=== PATIENT | male | born 1960 | race Caucasian/White ===

== ENCOUNTER 2020-06-27 14:22 | Outpatient (CLI) | payer OTHER, SELFPAY ==
--- NOTE | ~2020-06-27 | US_ITS ---
EXAMINATION: US scrotum doppler EXAM DATE: 06/27/2020 15:42 INDICATION: Left groin pain. TECHNIQUE: Multiple grayscale and Doppler images of the testicles and scrotum were obtained bilateral ly. There is no prior study for comparison. FINDINGS: Right testicle measures 4.4 x 3.1 x 2.0 cm and is morphologically normal. Low resistance Doppler suzanne w confirmed. The epididymis is unremarkable. Varicocele, vessels up to 4 mm in diameter. Left testicle measures 4.4 x 3.4 x 2.0 cm and is morphologically normal. Low resistance Doppler flow confirmed. The epididymis is unremarkable. Varicocele, vessels up to 4 mm in diameter. IMPRESSION: 1. Moderate-sized bilateral varicoceles. Reviewed, dictated and finalized at location A.
== END 2020-06-27 14:23 | disposition home or self-care (01) ==
PROVIDERS: PCP Family Medicine; Visit Provider Physician Assistant
DX: K40.90 Unilateral inguinal hernia, without obstruction or gangrene, not specified as recurrent (principal); I86.1 Scrotal varices
CPT/HCPCS: 76870; 93976

== ENCOUNTER 2020-10-26 08:46 | Outpatient (CLI) | payer OTHER, SELFPAY ==
--- NOTE | 2020-10-26 08:49 | ECG_ITS ---
Measurements Intervals [place] Rate: 70 P: 43 RI: 131 QRS: 25 QRSD: 94 T: 46 QT: 360 QTc: 389 Interpretive Statements SINUS RHYTHM DELAYED PRECORDIAL R/S TRANSITION BASELINE ARTIFACT- I, II, III, AVR, AVL, AVF BORDERLINE ECG Electronically Signed On 10-26-2020 9:10:48 MARINE ARCHITECT by Cecilio Qiu D.O.
== END 2020-10-26 08:47 | disposition home or self-care (01) ==
LOC: ANHSURGERY 08:49
PROVIDERS: PCP Physician Assistant; Visit Provider Surgery
DX: Z01.818 Encounter for other preprocedural examination (principal); E78.00 Pure hypercholesterolemia, unspecified; K40.90 Unilateral inguinal hernia, without obstruction or gangrene, not specified as recurrent
CPT/HCPCS: 36415; 86850; 86900; 86901; 93005

== ENCOUNTER 2020-10-28 00:43 | Outpatient (CLI) | payer OTHER, SELFPAY ==
[2020-10-28 20:15] LABS: SARS-CoV-2 RNA PCR Negative
== END 2020-10-28 00:44 | disposition home or self-care (01) ==
LOC: ANHCOVIDDT 00:44
PROVIDERS: PCP Physician Assistant; Visit Provider Surgery
DX: Z01.812 Encounter for preprocedural laboratory examination (principal); Z11.59 Encounter for screening for other viral diseases
CPT/HCPCS: 87635; C9803; U0003

== ENCOUNTER 2020-11-01 00:15 | Day surgery (SDC) | payer OTHER, SELFPAY ==
[2020-10-25 09:53] VITALS: BMI 27.6
--- NOTE | 2020-10-31 13:30 | P.PNAN_ITS ---
Anes - Initial Pre Proc Eval Procedure: Operation Date: 11/01/20 07:30 Proposed Procedures p Laparoscopic Left Inguinal Hernia Repair With Mesh, Davinci Assisted - Guicho Melara DO Date/Time: 10/31/20 13:30 Surgeon: Guicho Melara DO Pre Op Diagnosis: Left Inguinal Hernia Patient Data Age: 60 Gender: M Height: 1.88 m Weight: 97.59 kg Allergies Allergy/AdvReac Type Severity Reaction Status Date / Time No Known Allergies Allergy Verified 11/01/20 06:26 Home Medications Medication Instructions Recorded Confirmed Type glucosamine HCl 1,500 mg tablet 1,500 mg PO DAILY 09/29/20 11/01/20 History latanoprost 0.005 % eye drops 1 drp OPHTHALMIC (EYE) HS 09/29/20 11/01/20 History multivitamin,jk-[id number]-[id number] 1 tablet PO DAILY 09/29/20 11/01/20 History rosuvastatin 5 mg tablet 5 mg PO HS 09/29/20 11/01/20 History timolol 0.25 % eye drops 1 drp OPHTHALMIC (EYE) Q12H 09/29/20 11/01/20 History Patient hx anesthesia problems: none Family hx anesthesia problems: none PMFSH Past Medical History Medical History Glaucoma High cholesterol History of kidney stones Family History Family History Father COPD (chronic obstructive pulmonary disease) Mother Hypertension Cerebrovascular accident Diabetes mellitus Pulmonary embolism Sibling Parkinsons disease Sibling Diabetes mellitus Hypertension Pulmonary embolism High cholesterol Social History Social History Smoking status: Never smoker Alcohol intake: never Living arrangements: alone 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 Questions were solicited and answers provided to the satisfaction of the patient/family/POA.
[2020-11-01] VITALS (10 sets, daily range): BP systolic 112–138; BP diastolic 69–92; PULSE 66–79; RESP 14–21; TEMP 36.3–36.6; O2SAT 98–100
[2020-11-01] MEDS: ACETAMINOPHEN 500 MG TABLET 1000 MG PO (06:40)
[2020-11-01] MEDS: LACTATED RINGERS 1,000 ML 30 ML IV CONT ×2 (06:53→09:13)
[2020-11-01] MEDS: KETOROLAC 15 MG/ML VIAL (*BKC) IV PUSH (06:55)
--- NOTE | 2020-11-01 07:00 | PM.IMHP ---
H&P: HPI History of Present Illness Date/Time: 11/01/20 07:00 Cheif Complaint: LIH Narrative: Magno Davidson is a 60 year old male who presents for left inguinal hernia repair. He reports no changes since last seen in office. Review of Systems Review of Systems: All systems reviewed & are unremarkable except as noted in HPI and below Constitutional: Constitutional: Denies chills, Denies fever(s), Denies headache(s) and Denies weight loss Eyes: Eyes: Denies change in vision ENT: Denies dizziness, Denies headache(s), Denies neck mass and Denies throat swelling Cardiovascular: Cardiovascular: Denies chest pain, Denies lightheadedness and Denies dyspnea Respiratory: Respiratory: Denies cough, Denies dyspnea and Denies wheezing Gastrointestinal: Gastrointestinal: Denies abdominal pain, Denies change in bowel habits, Denies nausea and Denies vomiting Genitourinary: Genitourinary: Denies hematuria and Denies dysuria Musculoskeletal: Musculoskeletal: Reports as per HPI Integumentary/Breasts: Skin/Breast: Reports as per HPI Neurologic: Denies dizziness and Denies headache(s) Allergic/Immunologic: Allergic/Immunologic: Denies throat swelling and Denies wheezing PMFSH Past Medical History Medical History Glaucoma High cholesterol History of kidney stones Family History Family History Father COPD (chronic obstructive pulmonary disease) Mother Hypertension Cerebrovascular accident Diabetes mellitus Pulmonary embolism Sibling Parkinsons disease Sibling Diabetes mellitus Hypertension Pulmonary embolism High cholesterol Social History Social History Smoking status: Never smoker Alcohol intake: never Living arrangements: alone 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 Spiritual care concerns: No Meds Home Medications and Allergies Home Medications Medication Instructions Recorded Confirmed Type glucosamine HCl 1,500 mg tablet 1,500 mg PO DAILY 09/29/20 11/01/20 History latanoprost 0.005 % eye drops 1 drp OPHTHALMIC (EYE) HS 09/29/20 11/01/20 History multivitamin,jf-hslt-[id number] 1 tablet PO DAILY 09/29/20 11/01/20 History rosuvastatin 5 mg tablet 5 mg PO HS 09/29/20 11/01/20 History timolol 0.25 % eye drops 1 drp OPHTHALMIC (EYE) Q12H 09/29/20 11/01/20 History Allergies Allergy/AdvReac Type Severity Reaction Status Date / Time No Known Allergies Allergy Verified 11/01/20 06:26 Vital Signs Vital Signs - 24 hr 11/01/20 06:04 Temperature 36.6 C Pulse Rate 71 Respiratory Rate 16 Blood Pressure 138/92 H Pulse Oximetry 100 Exam Const: General: no acute distress and alert Orientation/consciousness: patient oriented x3 HENMT: Head: normocephalic and atraumatic Ears: hearing grossly normal bilaterally General nose exam: Normal nares present Mouth: Yes Normal oral and palatal mucosa present Eyes: Periorbital: periorbital findings normal Sclera: sclerae normal EOM: EOMs intact bilaterally Neck: Neck: normal visual inspection, no lymphadenopathy and trachea midline Chest: Chest palpation & inspection: normal inspection of the chest Resp: Effort & Inspection: normal respiratory effort Auscultation: clear to auscultation bilaterally Cardio: Jugular venous distension: no JVD Rate: regular rate Rhythm: regular rhythm Heart sounds: S1 normal heart sound present and S2 normal heart sound present Peripheral pulses: Peripheral pulses 2+ throughout GI: Inspection: normal to inspection GI Palp: Yes Soft to palpation, No Tenderness to palpation present (GI), No Guarding due to palpation present (GI) and No Rebound tenderness present Percussion: Yes normal to percussion Auscultation: normal bowel sounds : General: Yes no CVA tenderness Scrotum: inguinal hernia on the left Back/Spine/P
[2020-11-01] MEDS: ceFAZolin 2 GM/D5W 50 ML 2 GM/50 ML BAG IVPB (07:30)
[2020-11-01] MEDS: BUPIVACAINE/EPINEPHRINE 0.25% 10 ML VIAL 30 ML INFILTRATE (08:09)
--- NOTE | 2020-11-01 08:58 | PM.PROC ---
Procedure Note - Detailed Date of procedure: 11/01/20 Pre-op diagnosis: Left Inguinal Hernia Post-op diagnosis: same (Indirect LIH) Procedure performed: Laparoscopic left inguinal hernia repair with Progrip mesh, da Garima assisted Description of procedure: Procedure as well as risks, benefits, and alternatives were discussed with the patient. Written consent was obtained and placed in chart prior to procedure. Patient was brought back to surgical suite. He was placed supine on operating table. Time-out was done to confirm patient and procedure. He was then intubated by Anesthesia Department. His abdomen was prepped and draped in sterile fashion using chlorhexidine prep. 0.5% bupivacaine with epinephrine was infiltrated at each location for incision. An 8 mm incision was made in the left lateral abdomen, and a 5 mm Optiview trocar was advanced through the abdominal layers under direct visualization. Once inside the abdominal cavity, carbon dioxide insufflation was used to create a pneumoperitoneum. A camera was inserted and the abdominal cavity was inspected. The patient was placed in slight Trendelenburg position. An 8 millimeter incision was made on the right lateral abdomen and an 8 millimeter trocar was inserted under direct visualization. Another 8 millimeter incision was made just superior to the umbilicus and an 8 millimeter trocar was inserted under direct visualization. The 5 mm port was then removed and this was replaced with another 8 mm robotic port. The robotic arms were brought up to the patient's bedside and secured to the ports. The camera and instruments were inserted. I then moved over to the robotic console and took control of the camera and instruments. After careful inspection of the abdominal cavity, I began scoring the peritoneum along the left lower quadrant using scissors with electrocautery. The preperitoneal plane was entered and this was carefully dissected caudally along the inferior epigastric vessels. Careful dissection with scissors with electrocautery and blunt dissection was used to continue this dissection. I dissected far enough laterally to allow for mesh placement, and also dissected medially to identify the pubic arch and Miky's ligament. The hernia sac was identified and carefully dissected posteriorly. The cord contents were also identified and the peritoneum was carefully dissected far enough posteriorly to allow for mesh placement. Once an adequate pocket was created, I then placed the mesh within the preperitoneal pocket and carefully unfolded it. The mesh was centered on the hernia defect with adequate overlap circumferentially. The inferior edge of the mesh was inspected to ensure that it was far enough away from the peritoneal edge. The mesh appeared in proper position overlying the entire myopectineal orifice. The peritoneum was then closed over the mesh using a 3-0 V-lock running absorbable suture. The robotic instruments were removed. The robotic arms were disengaged from the ports and moved away from the bedside. The patient was flattened out in bed, the ports were removed under direct visualization, and the pneumoperitoneum was released. The skin of the incisions was approximated using 4-0 Monocryl subcuticular suture, and Exofin glue was applied on top. The patient was awakened from anesthesia, extubated, and transferred to recovery. Implants: Progrip Mesh 10cm x 15cm Anesthesia: GETA and local (0.5% bupivicaine with epi) Surgeon: Guicho Melara DO Estimated blood loss (mL): 5 Drains: No Packing: No Pathology: none sent Complications: No immediate complications Condition: stable Disposition: same day Findings: This is a 60-year-old man who presented with left groin pain for the past 5-6 months. On exam is found to have a moderate-sized left inguinal hernia. Discussions were made with the patient about his treatment options and decision was made to proceed with laparoscopic left ingu
[2020-11-01] MEDS: fentaNYL CITRATE INJ (*CRX) 100 MCG/2 ML VIAL 25 MCG IV PUSH (10:02)
[2020-11-01] MEDS: oxyCODONE HCL (*CRX) 5 MG TAB IR PO (10:40)
--- NOTE | 2020-11-01 15:37 | SUR.PHASEII ---
1130 PT URINATED WITHOUT ISSUE.
== END 2020-11-01 12:15 | disposition home or self-care (01) ==
PROVIDERS: PCP Physician Assistant; Visit Provider Surgery
PROC: 8E0Y4CZ Robotic Assisted Procedure of Lower Extremity, Percutaneous Endoscopic Approach (ICD-10-PCS; CPT 49650; principal; 2020-11-01 07:30)
DX: K40.90 Unilateral inguinal hernia, without obstruction or gangrene, not specified as recurrent (principal); H40.9 Unspecified glaucoma; E78.00 Pure hypercholesterolemia, unspecified; Z87.442 Personal history of urinary calculi; Z87.898 Personal history of other specified conditions
CPT/HCPCS: 49650; S2900; 36415; 86850; 86900; 86901; 87635; 93005; A9270; C1781; C9803; J0330; J0690; J1100; J1885; J2250; J2405; J2704; J3010; J7030; J7120; U0003

== ENCOUNTER → 2020-11-28 11:34 | Outpatient (CLI) | payer OTHER, SELFPAY ==
--- NOTE | ~2020-11-28 | US_ITS ---
EXAMINATION: US venous doppler LE EXAM DATE: 11/28/2020 12:14 INDICATION: M79.89 - Other specified soft tissue disorders. Left varicose vein. TECHNIQUE: Multiple grayscale, color flow and Doppler images of the lower extremity deep venous syste ms bilaterally were obtained and reviewed. There is no prior study for comparison. FINDINGS: Right side: The right common femoral, femoral and profunda veins demonstrate normal color flow, respi ratory variation, augmentation and compressibility. Compressibility, color flow confirmed within the right popliteal, posterior tibial, peroneal, and greater saphenous veins. Left side: The left common femoral, femoral and profunda veins demonstrate normal color flow, respira tory variation, augmentation and compressibility. Compressibility, color flow confirmed within the l eft popliteal, posterior tibial, peroneal, and greater saphenous veins. IMPRESSION: 1. No lower extremity deep venous thrombosis bilaterally. Reviewed, dictated and finalized at location B. [employer]PER
== END ==
PROVIDERS: Visit Provider Surgery
DX: M79.89 Other specified soft tissue disorders (principal)
CPT/HCPCS: 93970

== ENCOUNTER 2022-11-25 07:21 | Day surgery (SDC) | payer OTHER, SELFPAY ==
[2022-10-31 10:05] VITALS: BMI 26.8
[2022-11-05 10:04] VITALS: BMI 27.6
--- NOTE | 2022-11-22 08:26 | P.PNAN_ITS ---
Anes - Initial Pre Proc Eval Procedure: Operation Date: 11/25/22 08:00 Proposed Procedures p Screening Colonoscopy - Agus Mallory MD Date/Time: 11/22/22 08:26 Surgeon: Agus Mallory MD Pre Op Diagnosis: Neoplasm Screening Patient Data Age: 62 Gender: M Height: 1.88 m Weight: 97.5 kg Allergies Allergy/AdvReac Type Severity Reaction Status Date / Time No Known Allergies Allergy Verified 11/05/22 10:03 Home Medications Medication Instructions Recorded Confirmed Type glucosamine HCl 1,500 mg tablet 1,500 mg PO DAILY 09/29/20 11/05/22 History latanoprost 0.005 % eye drops 1 drp ophthalmic (eye) HS 09/29/20 11/05/22 History multivitamin,[id number]-[id number] 1 tablet PO DAILY 09/29/20 11/05/22 History (Complete Multivitamin tablet) rosuvastatin 5 mg tablet 5 mg PO HS 09/29/20 11/05/22 History timolol 0.25 % eye drops 1 drp ophthalmic (eye) Q12H 09/29/20 11/05/22 History sodium,potassium,mag sulfates 17.5 See Rx Instructions PO .COMPLEX 10/31/22 Rx gram-3.13 gram-1.6 gram oral soln #354 mL (Suprep Bowel Prep Kit) Patient hx anesthesia problems: none Family hx anesthesia problems: none Results Review: All pre-operative results and documents have been reviewed as part of the pre- operative evaluation. [facility] Past Medical History Medical History Glaucoma High cholesterol History of kidney stones Surgical History Surgical History History of inguinal hernia repair 11/01/20 Laparoscopic left inguinal hernia repair with Progrip mesh, da Garima assisted Family History Family History Father COPD (chronic obstructive pulmonary disease) Mother Hypertension Cerebrovascular accident Diabetes mellitus Pulmonary embolism Sibling Parkinsons disease Sibling Diabetes mellitus Hypertension Pulmonary embolism High cholesterol Social History Social History Smoking status: Never smoker Alcohol intake: never Substance use type: does not use 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 Informed Consent: The patient's anesthetic plan and its attendant risks and benefits were discussed with the patient/family/POA. Questions were solicited and answers provided to the satisfaction of the patient/family/POA.
[2022-11-25 06:40] VITALS: BP 156/93; PULSE 66; RESP 18; TEMP 36.9; O2SAT 100
--- NOTE | 2022-11-25 07:20 | PM.HPGS ---
History of Present Illness History of Present Illness Consent: Risks, benefits, and alternatives have been discussed and questions answered. Patient agrees to proceed with procedure. Chief complaint: Neoplasm Screening Narrative: Magno Davidson is a 62 year old male Presents for screening colonoscopy. Patient's current weight appetite and bowel movements are normal. Patient denies abdominal pain. He has had no bleeding. Previous colonoscopy 10 years ago was unremarkable. Patient presents today for neoplasia screening. Review of Systems Review of Systems: Review of systems noncontributory. [facility] Past Medical History Medical History Glaucoma High cholesterol History of kidney stones Surgical History Surgical History History of inguinal hernia repair 11/01/20 Laparoscopic left inguinal hernia repair with Progrip mesh, da Garima assisted Family History Family History Father COPD (chronic obstructive pulmonary disease) Mother Hypertension Cerebrovascular accident Diabetes mellitus Pulmonary embolism Sibling Parkinsons disease Sibling Diabetes mellitus Hypertension Pulmonary embolism High cholesterol Social History Social History Smoking status: Never smoker Alcohol intake: never Substance use type: does not use 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 Spiritual care concerns: No Meds Home Medications and Allergies Home Medications Medication Instructions Recorded Confirmed Type glucosamine HCl 1,500 mg tablet 1,500 mg PO DAILY 09/29/20 11/05/22 History latanoprost 0.005 % eye drops 1 drp ophthalmic (eye) HS 09/29/20 11/05/22 History multivitamin,ql-[id number]-[id number] 1 tablet PO DAILY 09/29/20 11/05/22 History (Complete Multivitamin tablet) rosuvastatin 5 mg tablet 5 mg PO HS 09/29/20 11/05/22 History timolol 0.25 % eye drops 1 drp ophthalmic (eye) Q12H 09/29/20 11/05/22 History sodium,potassium,mag sulfates 17.5 See Rx Instructions PO .COMPLEX 10/31/22 Rx gram-3.13 gram-1.6 gram oral soln #354 mL (Suprep Bowel Prep Kit) Allergies Allergy/AdvReac Type Severity Reaction Status Date / Time No Known Allergies Allergy Verified 11/05/22 10:03 Exam Narrative: Physical exam reveals patient be alert. Vital signs stable. HEENT exam is unremarkable. Patient is anicteric. Lungs are clear to auscultation and percussion. Heart is without murmur or extra sounds. Abdomen bowel sounds present soft nontender with no organomegaly. Digital external rectal exam is normal. Assessment and Plan Assessment and plan (1) Encounter for screening colonoscopy: Code(s): Z12.11 - Encounter for screening for malignant neoplasm of colon Status: Acute Assessment and Plan: Patient presents for screening colonoscopy. Patient appears be at average risk for colon polyps. Further recommendations may be given after endoscopy.
[2022-11-25] MEDS: LACTATED RINGERS 1,000 ML 150 ML IV CONT (07:47)
[2022-11-25 08:11] VITALS: BP 88/60; PULSE 64; RESP 16; O2SAT 95
[2022-11-25 08:21] VITALS: BP 92/60; PULSE 64; RESP 16; O2SAT 97
[2022-11-25 08:31] VITALS: BP 112/73; PULSE 68; RESP 15; O2SAT 99
--- NOTE | 2022-11-25 12:17 | WPDANESPN ---
Anes - Prog Note Post-Op Date/Time: 11/25/22 12:17 Cardiovascular status: normal Respiratory status: normal Airway patency: baseline Mental status: baseline Post-Op hydration status: normal Vital Signs: Last Vital Signs Temp 36.9 C 11/25/22 06:40 Pulse 68 11/25/22 08:31 Resp 15 11/25/22 08:31 BP 112/73 11/25/22 08:31 Pulse Ox 99 11/25/22 08:31 O2 Del Method Room Air 11/25/22 08:31 Pain Score (VAS): 0 I/O: Intake & Output 11/24/22 11/25/22 11/25/22 23:59 07:59 15:59 Intake Total 400 Balance 400 Post-procedural complaints: none Patient Feedback: Patient satisfied with anesthetic care. Other Findings: Patient vital signs back to baseline. Patient denies nausea and vomiting. Patient's pain under control. Patient OK for discharge.
== END 2022-11-25 09:00 | disposition home or self-care (01) ==
PROVIDERS: PCP Family Medicine; Visit Provider Internal Medicine Gastroenterology
PROC: 0DJD8ZZ Inspection of Lower Intestinal Tract, Via Natural or Artificial Opening Endoscopic (ICD-10-PCS; CPT 45378; principal; 2022-11-25 08:00)
DX: Z12.11 Encounter for screening for malignant neoplasm of colon (principal)
CPT/HCPCS: 45378

== ENCOUNTER → 2023-06-17 16:33 | Outpatient (CLI) | payer OTHER, SELFPAY ==
--- NOTE | ~2023-06-17 | XR_ITS ---
EXAM: XR toe 2nd LT min 2V DATE: 06/17/2023 17:44 HISTORY: M79.89 - Other specified soft tissue disorders . COMPARISON: None available. FINDINGS: Normal mineralization. No fracture or dislocation. No lytic or blastic lesion. Scattered d egenerative changes. No erosion or periosteal change. Soft tissues within normal limits. No radiopaqu e foreign body. IMPRESSION: No acute osseous finding in the left second toe. Reviewed, dictated and finalized at location K.
== END ==
PROVIDERS: PCP Physician Assistant; Visit Provider Physician Assistant
DX: M79.89 Other specified soft tissue disorders (principal)
CPT/HCPCS: 73660